=== PATIENT | male | born 1975 | race African-American/Black ===

== ENCOUNTER 2021-01-29 19:42 | Inpatient (IN) | payer MEDICAID, OTHER ==
--- NOTE | 2021-01-29 20:34 | ERPHSYRPT ---
- History of Present Illness Time Seen by Provider: 01/29/21 20:23 Source: patient Exam Limitations: no limitations Patient Subjective Stated Complaint: Patient states " I started coughing last 01/25/21 and I went to PCP on Saturday01/27/21 and was started on ATB which I have been taking but it hasn't got any better and know my rib cage is killing me and when I cough the pain is terrible". Triage Nursing Assessment: Patient arrived to ED and ambulated to room without difficulty. Gait steady. Patient A/O times 4. Patient able to follow directions without difficulty. Lungs clear/diminished A/P throughout. Patient denies SOB/chest pain. Respiratory regular and easy, non-labored. Cap refill < 3 seconds. No S/S of respiratory distress noted. 02 sat upon arrival 95% on room air. + BS times 4 quads. ABD soft, round, non-distended. Patient denies pain or discomfort upon palpitation to ABD. Upon palpitation of rib cage patient stated very tender and sore. Patient states most of pain comes when he gets into a coughing spell. + radial and pedal bilateral. No dependent edema noted. Oral mucosa clean, moist. Skin turgor < 3 seconds. No S/S of dehydration noted. Patient states he does ache all over and he has slept all day. Patient stated appetite has been poor last 2 days but fluid intake has been normal. Bilateral hand egg processor strong and equal. Bilateral pupils brisk and reactive to light. Moves all extremities without difficulty. Patient denies any falls or trauma that could contribute to rib pain. Patient noted to have dry, hacking cough with no sputum production. Patient states he hasn't been able to cough anything up. Patient states he has been taking his oral ATB 3X day since Saturday01/27/21. Physician History: 45 years old male with history of diabetes mellitus, hypertension presented in the ER with chief complaint of cough for the last 4 days. Patient report dry cough more at nighttime with gradual worsening. Because of repeated coughing is having bilateral lower rib cage pain with coughing. Denies any palpitations or shortness of breath. No fever or chills reported. Denies any sick contact. 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 Patient was seen at primary care and was given Keflex but does not seem much help. Timing/Duration: day(s) (4), gradual onset, worse Cough Quality/Degree: dry cough Possible Cause: no prior episodes Modifying Factors: Worsens With: coughing Associated Symptoms: chest pain/soreness, cough, No fever, No headache, No lightheadedness, No muscle aches, No nasal congestion, No shortness of breath Allergies/Adverse Reactions: No Known Drug Allergies Allergy (Verified 01/29/21 19:50) Home Medications: Pravastatin Sodium 10 mg PO DAILY 08/10/16 [History] Hx Tetanus, Diphtheria Vaccination/Date Given: No Hx Influenza Vaccination/Date Given: No Hx Pneumococcal Vaccination/Date Given: No Immunizations Up to Date: Yes Travel Risk - International Travel Have you traveled outside of the country in past 3 weeks: No - Coronavirus Screening Are you exhibiting any of the following symptoms?: Yes Symptoms: Cough: New Onset, Headaches/Body Aches/Fatigue Close contact with a COVID-19 positive Pt in past 14-21 Days: No - Review of Systems Constitutional: No Symptoms Eyes: No Symptoms Ears, Nose, & Throat: No Symptoms Respiratory: Cough Cardiac: No Palpitations, No Orthopnea Abdominal/Gastrointestinal: No Symptoms Genitourinary Symptoms: No Symptoms Musculoskeletal: No Symptoms Skin: No Symptoms Neurological: No Symptoms Psychological: No Symptoms Endocrine: No Symptoms Hematologic/Lymphatic: No Symptoms Immunological/Allergic: No Symptoms - Past Medical History Pertinent Past Medical History: Yes Neurological History: No Pertinent History ENT History: No Pertinent History Cardiac History: High Cholesterol, Hypertension Respiratory History: No Pertinent History Endocrine Medical History: Diabetes Type II Musculoskeletal History: No Pertinent History GI Medical History: No Pertinent History History: No Pertinent History Psycho-Social History: No Pertinent History Male Reproductive Disorders: No Pertinent History - Past Surgical History Past Surgical History: No Neuro Surgical History: No Pertinent History Cardiac: No Pertinent History Respiratory: No Pertinent History Gastrointestinal: No Pertinent History Genitourinary: No Pertinent History Musculoskeletal: No Pertinent History Male Surgical History: No Pertinent History - Social History Smoking Status: Never smoker Exposure to second hand smoke: Yes Drug Use: none Patient Lives Alone: Yes - Nursing Vital Signs Nursing Vital Signs: Initial Vital Signs Temperature 98.8 F 01/29/21 19:58 Pulse Rate 79 01/29/21 19:58 Respiratory Rate 18 01/29/21 19:58 Blood Pressure 156/98 01/29/21 19:58 O2 Sat by Pulse Oximetry 95 01/29/21 19:58 Pain Scale Pain Intensity 4 - Physical Exam General Appearance: no apparent distress Eye Exam: PERRL/EOMI, eyes nml inspection Ears, Nose, Throat Exam: TMs normal, moist mucous membranes, pharyngeal erythema Neck Exam: normal inspection, non-tender, supple, full range of motion Respiratory Exam: normal breath sounds, lungs clear, No chest tenderness Cardiovascular Exam: regular rate/rhythm, normal heart sounds Gastrointestinal/Abdomen Exam: soft, No tenderness Back Exam: normal inspection, normal range of motion Extremity Exam: normal inspection, normal range of motion Neurologic Exam: alert, oriented x 3, cooperative Skin Exam: normal color SpO2 Interpretation: normal SpO2: 95 O2 Delivery: Room Air - Course EKG Interpreted by Me: RATE (68), Sinus Rhythm, Left [place] Deviation, LAFB, NORMAL INTERVALS, Other (LVH, T wave inversion and anterolateral leads) Ordered Tests: Medication Summary Discontinued Medications Generic Name Dose Route Start Last Admin Trade Name Freq PRN Reason Stop Dose Admin Acetaminophen 650 mg 01/30/21 00:23 Tylenol 325 Mg PO 03/01/21 00:22 Q4H PRN PRN PAIN AND/OR FEVER Albuterol Sulfate 4 puff 01/30/21 07:00 Ventolin Common Canister IH 03/01/21 06:59 TIDRT JERMAN Albuterol Sulfate 4 puff 01/30/21 01:21 Ventolin Common Canister IH 03/01/21 01:20 Q4H PRN PRN SHORTNESS OF BREATH/WHEEZING Albuterol/Ipratropium 3 ml 01/29/21 20:56 01/29/21 21:07 Duoneb 0.5-3 Mg/3 Ml Neb IH 01/29/21 20:57 3 ml STAT ONE Administration Albuterol/Ipratropium Confirm 01/29/21 21:06 Duoneb 0.5-3 Mg/3 Ml Neb Administered 01/29/21 21:07 Dose 3 ml IH .STK-MED ONE Atenolol 50 mg 01/30/21 10:00 01/31/21 06:40 Tenormin 50 Mg PO 03/01/21 09:59 50 mg BID JERMAN Administration Dexamethasone Sodium Phosphate 4 mg 01/30/21 10:00 01/31/21 09:14 Decadron 4 Mg Inj IV 03/01/21 09:59 4 mg BID JERMAN Administration Enoxaparin Sodium Confirm 01/29/21 22:58 Enoxaparin Sodium Administered 01/29/21 22:59 Dose 80 mg SQ .STK-MED ONE Enoxaparin Sodium 40 mg 01/30/21 22:00 01/30/21 22:15 Enoxaparin Sodium SQ 03/01/21 21:59 40 mg Q24H22 JERMAN Administration Famotidine 20 mg 01/30/21 10:00 01/31/21 09:14 Pepcid 20 Mg Vial IV 03/01/21 09:59 20 mg Q12HT JERMAN Administration Fluoxetine HCl 20 mg 01/30/21 10:00 01/31/21 09:14 Prozac 20 Mg PO 03/01/21 09:59 20 mg DAILY JERMAN Administration Hydrochlorothiazide 25 mg 01/31/21 10:00 01/31/21 08:16 Hydrodiuril 25 Mg PO 03/02/21 09:59 25 mg DAILY JERMAN Administration Ceftriaxone Sodium/Dextrose 1 g in 50 mls @ 100 mls/hr 01/29/21 20:56 01/29/21 22:55 Rocephin 1 Gm-D5w 50 Ml Bag IV 01/29/21 21:25 Infused STAT STA Infusion Azithromycin 500 mg in 250 mls @ 250 mls/hr 01/29/21 20:56 01/29/21 22:55 Zithromax 500 Mg/ 250 Ml Nacl Premix IV 01/29/21 21:55 Infused STAT STA Infusion Azithromycin Confirm 01/29/21 21:01 Zithromax 500 Mg/ 250 Ml Nacl Premix Administered 01/29/21 21:02 Dose 500 mg in 250 mls @ ud IV .STK-MED ONE Ceftriaxone Sodium/Dextrose Confirm 01/29/21 21:01 Rocephin 1 Gm-D5w 50 Ml Bag Administered 01/29/21 21:02 Dose 1 g in 50 mls @ ud IV .STK-MED ONE Remdesivir 200 mg/ Sodium 250 mls @ 125 mls/hr 01/29/21 22:58 01/29/21 23:17 Chloride IV 01/30/21 00:57 125 mls/hr ONCE ONE Administration Sodium Chloride Confirm 01/29/21 23:13 Sodium Chloride 0.9% 250 Ml Administered 01/29/21 23:14 Dose 250 mls @ ud IV .STK-MED ONE Ceftriaxone Sodium/Dextrose 1 g in 50 mls @ 100 mls/hr 01/30/21 22:00 Rocephin 1 Gm-D5w 50 Ml Bag IV 03/01/21 21:59 Q24H22 JERMAN Azithromycin 500 mg in 250 mls @ 250 mls/hr 01/30/21 22:00 Zithromax 500 Mg/ 250 Ml Nacl Premix IV 03/01/21 21:59 Q24H22 JERMAN Remdesivir 100 mg/ Sodium 100 mls @ 100 mls/hr 01/30/21 23:01 01/30/21 22:16 Chloride IV 02/03/21 00:00 100 mls/hr Q24H JERMAN Administration Insulin Glargine 30 unit 01/30/21 10:00 01/31/21 09:15 Lantus Insulin SQ 03/01/21 09:59 30 unit QAM JERMAN Administration Insulin Glargine 70 unit 01/30/21 22:00 01/30/21 22:15 Lantus Insulin SQ 03/01/21 21:59 70 unit QPM JERMAN Administration Insulin Human Lispro 0 unit 01/30/21 00:23 01/31/21 11:47 Humalog SQ 03/01/21 00:22 9 unit UD PRN Administration HYPERGLYCEMIA Lisinopril 10 mg 01/30/21 10:00 Zestril 10 Mg PO 03/01/21 09:59 BID JERMAN Lisinopril 40 mg 01/30/21 10:00 01/31/21 06:40 Zestril 20 Mg PO 03/01/21 09:59 40 mg DAILY JERMAN Administration Lorazepam 1 mg 01/30/21 09:08 Ativan 1 Mg PO 03/01/21 09:07 Q6H PRN PRN Methylprednisolone Sodium Succinate 125 mg 01/29/21 20:56 01/29/21 21:15 Solu-Medrol 125 Mg IV 01/29/21 20:57 125 mg STAT ONE Administration Methylprednisolone Sodium Succinate Confirm 01/29/21 21:01 Solu-Medrol 125 Mg Administered 01/29/21 21:02 Dose 125 mg .ROUTE .STK-MED ONE Miscellaneous Information 0 each 01/30/21 07:45 Medication Intervention 03/01/21 07:44 .RN TO CHECK WITH PATIENT [facility] Ondansetron HCl 4 mg 01/30/21 00:23 Zofran 4 Mg/2 Ml Vial IV 03/01/21 00:22 Q6H PRN PRN NAUSEA/VOMITING Potassium Chloride 40 meq 01/29/21 23:04 01/29/21 23:16 Klor Con 10 Meq PO 01/29/21 23:05 40 meq STAT ONE Administration Potassium Chloride Confirm 01/29/21 23:07 Klor Con 10 Meq Administered 01/29/21 23:08 Dose 40 meq PO .STK-MED ONE Potassium Chloride 10 meq 01/30/21 10:00 01/31/21 09:15 Klor Con 10 Meq PO 03/01/21 09:59 10 meq DAILY JERMAN Administration Prednisone 60 mg 01/29/21 20:45 Deltasone 10 Mg PO 02/28/21 20:44 1XONLY JERMAN Prednisone Confirm 01/29/21 20:41 Deltasone 20 Mg Administered 01/29/21 20:42 Dose 60 mg .ROUTE .STK-MED ONE Pregabalin 75 mg 01/30/21 10:00 01/31/21 09:15 Lyrica 75 Mg Cap PO 03/01/21 09:59 75 mg DAILY JERMAN Administration Remdesivir Confirm 01/29/21 23:13 Remdesivir Administered 01/29/21 23:14 Dose 200 mg IV .STK-MED ONE Simvastatin 20 mg 01/30/21 22:00 01/30/21 22:16 Zocor 20mg PO 03/01/21 21:59 20 mg HS JERMAN Administration Lab/Rad Data: Laboratory Result Diagrams 01/29/21 21:15 01/29/21 21:15 Laboratory Results 01/29/21 01/29/21 01/29/21 Range/Units 21:58 21:15 21:15 WBC (4.0-10.5) K/mm3 RBC (4.1-5.6) M/mm3 Hgb (12.5-18.0) gm/dl Hct (42-50) % MCV (78-100) fl MCH (26-32) pg MCHC (32-36) g/dl RDW (11.5-14.0) % Plt Count (150-450) K/mm3 MPV (7.5-11.0) fl Segmented Neutrophils (36.-66.) % Lymphocytes (Manual) (24-44) % Monocytes (Manual) (0.0-12.0) % Eosinophils (Manual) (0.00-3.0) % Atypical Lymphocytes % Platelet Estimate (NORMAL) RBC Morphology D-Dimer 479 (215-500) ng/mL Sodium (137-145) mmol/L Potassium (3.5-5.1) mmol/L Chloride (98-107) mmol/L Carbon Dioxide (22-30) mmol/L Anion Gap (5-15) MEQ/L BUN (9-20) mg/dL Creatinine (0.66-1.25) mg/dL Estimated GFR ML/MIN Glucose (74-106) mg/dL POC Glucometer (74 to 106) mg/dL Lactic Acid (0.4-2.0) Calcium (8.4-10.2) mg/dL Magnesium (1.6-2.3) mg/dL Total Bilirubin (0.2-1.3) mg/dL AST (17-59) U/L ALT (0-50) U/L Alkaline Phosphatase (38-126) U/L Troponin I < 0.012 (0.000-0.034) ng/mL NT-Pro-B Natriuret Pep (0-450) pg/mL Serum Total Protein (6.3-8.2) g/dL Albumin (3.5-5.0) g/dL Urine Color (YELLOW) Urine Appearance (CLEAR) Urine pH (5-6) Ur Specific [place] (1.005-1.025) Urine Protein (Negative) Urine Ketones (NEGATIVE) Urine Blood (0-5) [place]/ul Urine Nitrite (NEGATIVE) Urine Bilirubin (NEGATIVE) Urine Urobilinogen (0-1) mg/dL Ur Leukocyte Esterase (NEGATIVE) Urine WBC (Auto) (0-5) /HPF Urine RBC (Auto) (0-2) /HPF U Epithel Cells (Auto) (FEW) /HPF Urine Bacteria (Auto) (NEGATIVE) /HPF Urine Mucus (Auto) (NEGATIVE) /HPF Urine Culture Reflexed (NO) Urine Glucose (NEGATIVE) mg/dL Influenza Type A Ag NEGATIVE (NEGATIVE) Influenza Type B Ag NEGATIVE (NEGATIVE) RSV (PCR) NEGATIVE (Negative) SARS-CoV-2 (PCR) POSITIVE A (NEGATIVE) 01/29/21 01/29/21 01/29/21 Range/Units 21:15 21:15 21:08 WBC 5.3 (4.0-10.5) K/mm3 RBC 4.89 (4.1-5.6) M/mm3 Hgb 13.9 (12.5-18.0) gm/dl Hct 42.2 (42-50) % MCV 86.3 (78-100) fl MCH 28.4 (26-32) pg MCHC 32.9 (32-36) g/dl RDW 12.5 (11.5-14.0) % Plt Count 260 (150-450) K/mm3 MPV 9.2 (7.5-11.0) fl Segmented Neutrophils 67 H (36.-66.) % Lymphocytes (Manual) 26 (24-44) % Monocytes (Manual) 1 (0.0-12.0) % Eosinophils (Manual) 1 (0.00-3.0) % Atypical Lymphocytes 5 % Platelet Estimate NORMAL (NORMAL) RBC Morphology NORMAL D-Dimer (215-500) ng/mL Sodium 138 (137-145) mmol/L Potassium 3.1 L (3.5-5.1) mmol/L Chloride 102 (98-107) mmol/L Carbon Dioxide 29 (22-30) mmol/L Anion Gap 10.0 (5-15) MEQ/L BUN 7 L (9-20) mg/dL Creatinine 0.78 (0.66-1.25) mg/dL Estimated GFR > 60.0 ML/MIN Glucose 208 H (74-106) mg/dL POC Glucometer (74 to 106) mg/dL Lactic Acid 0.7 (0.4-2.0) Calcium 8.5 (8.4-10.2) mg/dL Magnesium 2.0 (1.6-2.3) mg/dL Total Bilirubin 0.50 (0.2-1.3) mg/dL AST 24 (17-59) U/L ALT 27 (0-50) U/L Alkaline Phosphatase 94 (38-126) U/L Troponin I (0.000-0.034) ng/mL NT-Pro-B Natriuret Pep 32.4 (0-450) pg/mL Serum Total Protein 7.2 (6.3-8.2) g/dL Albumin 3.5 (3.5-5.0) g/dL Urine Color (YELLOW) Urine Appearance (CLEAR) Urine pH (5-6) Ur Specific [place] (1.005-1.025) Urine Protein (Negative) Urine Ketones (NEGATIVE) Urine Blood (0-5) [place]/ul Urine Nitrite (NEGATIVE) Urine Bilirubin (NEGATIVE) Urine Urobilinogen (0-1) mg/dL Ur Leukocyte Esterase (NEGATIVE) Urine WBC (Auto) (0-5) /HPF Urine RBC (Auto) (0-2) /HPF U Epithel Cells (Auto) (FEW) /HPF Urine Bacteria (Auto) (NEGATIVE) /HPF Urine Mucus (Auto) (NEGATIVE) /HPF Urine Culture Reflexed (NO) Urine Glucose (NEGATIVE) mg/dL Influenza Type A Ag (NEGATIVE) Influenza Type B Ag (NEGATIVE) RSV (PCR) (Negative) SARS-CoV-2 (PCR) (NEGATIVE) 01/29/21 01/29/21 Range/Units 20:56 20:16 WBC (4.0-10.5) K/mm3 RBC (4.1-5.6) M/mm3 Hgb (12.5-18.0) gm/dl Hct (42-50) % MCV (78-100) fl MCH (26-32) pg MCHC (32-36) g/dl RDW (11.5-14.0) % Plt Count (150-450) K/mm3 MPV (7.5-11.0) fl Segmented Neutrophils (36.-66.) % Lymphocytes (Manual) (24-44) % Monocytes (Manual) (0.0-12.0) % Eosinophils (Manual) (0.00-3.0) % Atypical Lymphocytes % Platelet Estimate (NORMAL) RBC Morphology D-Dimer (215-500) ng/mL Sodium (137-145) mmol/L Potassium (3.5-5.1) mmol/L Chloride (98-107) mmol/L Carbon Dioxide (22-30) mmol/L Anion Gap (5-15) MEQ/L BUN (9-20) mg/dL Creatinine (0.66-1.25) mg/dL Estimated GFR ML/MIN Glucose (74-106) mg/dL POC Glucometer 207 H (74 to 106) mg/dL Lactic Acid (0.4-2.0) Calcium (8.4-10.2) mg/dL Magnesium (1.6-2.3) mg/dL Total Bilirubin (0.2-1.3) mg/dL AST (17-59) U/L ALT (0-50) U/L Alkaline Phosphatase (38-126) U/L Troponin I (0.000-0.034) ng/mL NT-Pro-B Natriuret Pep (0-450) pg/mL Serum Total Protein (6.3-8.2) g/dL Albumin (3.5-5.0) g/dL Urine Color YELLOW (YELLOW) Urine Appearance CLEAR (CLEAR) Urine pH 5.0 (5-6) Ur Specific [place] 1.021 (1.005-1.025) Urine Protein 30 (Negative) Urine Ketones SMALL (NEGATIVE) Urine Blood NEGATIVE (0-5) [place]/ul Urine Nitrite NEGATIVE (NEGATIVE) Urine Bilirubin NEGATIVE (NEGATIVE) Urine Urobilinogen 4 (0-1) mg/dL Ur Leukocyte Esterase NEGATIVE (NEGATIVE) Urine WBC (Auto) 0-2 (0-5) /HPF Urine RBC (Auto) NONE (0-2) /HPF U Epithel Cells (Auto) NONE (FEW) /HPF Urine Bacteria (Auto) NONE SEEN (NEGATIVE) /HPF Urine Mucus (Auto) SLIGHT (NEGATIVE) /HPF Urine Culture Reflexed NO (NO) Urine Glucose >=500 (NEGATIVE) mg/dL Influenza Type A Ag (NEGATIVE) Influenza Type B Ag (NEGATIVE) RSV (PCR) (Negative) SARS-CoV-2 (PCR) (NEGATIVE) - Progress Progress: re-examined Air Movement: fair Progress Note: 01/29/21 23:02 45 years old is evaluated for worsening cough. Patient has decreased air movements, given Solu-Medrol and breathing treatment, chest x-ray showed bilateral pneumonia. EKG showed normal sinus rhythm with LVH, inferolateral T wave inversions. Has negative troponins. Mildly low potassium and is given replacement. He started on Rocephin and Zithromax. COVID-19 testing is positive. Started on remdesivir and given prophylactic dose of Lovenox as patient has negative D-dimers. Discussed with Dr. Edge, agreed with above plan and patient is accepted for admission. Plan discussed with patient who und erstand and agrees with it. Blood Culture(s) Obtained: Yes Antibiotics given: Yes Discussed with Dr.: Other (Dr. Edge) Will see patient in: hospital (full admit) Counseled pt/family regarding: lab results, diagnosis, rad results - Departure Departure Disposition: In-patient Admission Clinical Impression: Pneumonia due to COVID-19 virus, Hypokalemia Condition: Stable Critical Care Time: Yes Critical Care Time(excluding separately billable procedures): Critical 30-74 mins
[2021-01-29] MEDS ORDERED: DELTASONE 20 MG ONE (20:41)
[2021-01-29] MEDS ORDERED: DELTASONE 10 MG PO SCH (20:45)
[2021-01-29] MEDS ORDERED: solu-MEDROL 125 MG IV ONE (20:56)
[2021-01-29] MEDS ORDERED: DUONEB 0.5-3 MG/3 ml Neb IH ONE ×2 (20:56→21:06)
[2021-01-29] MEDS ORDERED: Zithromax 500 MG/ 250 ML NaCl Premix 500 MG/250 ML IVPB IV STA (20:56)
[2021-01-29] MEDS ORDERED: ROCEPHIN 1 Gm-D5w 50 ml Bag** 1 G/50 ML IVPB IV STA (20:56)
[2021-01-29] MEDS ORDERED: Zithromax 500 MG/ 250 ML NaCl Premix 500 MG/250 ML IVPB IV ONE (21:01)
[2021-01-29] MEDS ORDERED: solu-MEDROL 125 MG ONE (21:01)
[2021-01-29] MEDS ORDERED: ROCEPHIN 1 Gm-D5w 50 ml Bag** 1 G/50 ML IVPB IV ONE (21:01)
[2021-01-29 21:18] LABS: Hematocrit 42.2 % (42-50); Hemoglobin 13.9 gm/dl (12.5-18.0); Mean Cell Volume 86.3 fl (78-100); Mean Corpuscular Hemoglobin 28.4 pg (26-32); Mean Corpuscular Hgb Concent. 32.9 g/dl (32-36); Mean Platelet Volume 9.2 fl (7.5-11.0); Platelet Count 260 K/mm3 (150-450); Red Blood Count 4.89 M/mm3 (4.1-5.6); Red Cell Distribution Width 12.5 % (11.5-14.0); White Blood Count 5.3 K/mm3 (4.0-10.5)
[2021-01-29 21:38] LABS: ALBUMIN 3.5 g/dL (3.5-5.0); ALKALINE PHOSPHATASE 94 U/L (38-126); BLOOD UREA NITROGEN 7 mg/dL (9-20); CHLORIDE 102 mmol/L (98-107); Calcium 8.5 mg/dL (8.4-10.2); Carbon Dioxide 29 mmol/L (22-30); Creatinine 1 0.78 mg/dL (0.66-1.25); EST GLOMERULAR FILTRATION RATE > 60.0 ML/MIN; Glucose 208 mg/dL (74-106); NT PRO BNP 32.4 pg/mL (0-450); Potassium 3.1 mmol/L (3.5-5.1); SGOT/AST 24 U/L (17-59); SGPT/ALT 27 U/L (0-50); SODIUM 138 mmol/L (137-145); Total Protein 7.2 g/dL (6.3-8.2)
[2021-01-29 22:05] LABS: ATYPICAL LYMPHS 5 %; Eosinophil 1 % (0.00-3.0); Lymphocytes 26 % (24-44); Monocyte 1 % (0.0-12.0); Neutrophils 67 % (36.-66.); Platelet Estimate NORMAL (NORMAL); Total Cells Counted 100
[2021-01-29 22:37] LABS: INFLUENZA A NEGATIVE (NEGATIVE); INFLUENZA B NEGATIVE (NEGATIVE); RESPIRATORY SYNCTIAL VIRUS NEGATIVE (Negative)
[2021-01-29] MEDS ORDERED: REMDESIVIR 200 MG in Sodium Chloride 0.9% 250 ML 250 ML IV ONE (22:58)
[2021-01-29] MEDS ORDERED: ENOXAPARIN SODIUM SQ ONE (22:58)
[2021-01-29] MEDS ORDERED: Klor Con 10 MEQ PO ONE ×2 (23:04→23:07)
[2021-01-29] MEDS ORDERED: REMDESIVIR IV ONE (23:13)
[2021-01-29] MEDS ORDERED: Sodium Chloride 0.9% 250 ML 250 ML IV ONE (23:13)
[2021-01-30] MEDS ORDERED: TYLENOL 325 MG PO PRN (00:23)
[2021-01-30] MEDS ORDERED: Zofran 4 MG/2 ML VIAL IV PRN (00:23)
[2021-01-30] MEDS ORDERED: VENTOLIN COMMON CANISTER IH PRN (01:21)
[2021-01-30 01:26] LABS: Appearance CLEAR (CLEAR); Bilirubin NEGATIVE (NEGATIVE); Blood NEGATIVE Ery/ul (0-5); Glucose >=500 mg/dL (NEGATIVE); Ketones SMALL (NEGATIVE); Leukocyte Esterase NEGATIVE (NEGATIVE); Mucus SLIGHT /HPF (NEGATIVE); Nitrite NEGATIVE (NEGATIVE); Protein,Urine Dip 30 (Negative); Specific Gravity 1.021 (1.005-1.025); Urobilinogen 4 mg/dL (0-1); WBC 0-2 /HPF (0-5)
[2021-01-30 03:49] LABS: Bacteria NONE SEEN /HPF (NEGATIVE)
[2021-01-30 04:42] LABS: ALBUMIN 3.5 g/dL (3.5-5.0); ALKALINE PHOSPHATASE 111 U/L (38-126); BLOOD UREA NITROGEN 9 mg/dL (9-20); CHLORIDE 103 mmol/L (98-107); Calcium 8.6 mg/dL (8.4-10.2); Carbon Dioxide 25 mmol/L (22-30); Creatinine 1 0.71 mg/dL (0.66-1.25); EST GLOMERULAR FILTRATION RATE > 60.0 ML/MIN; Glucose 402 mg/dL (74-106); Potassium 4.2 mmol/L (3.5-5.1); SGOT/AST 24 U/L (17-59); SGPT/ALT 28 U/L (0-50); SODIUM 138 mmol/L (137-145)
[2021-01-30 04:53] LABS: Hematocrit 43.8 % (42-50); Hemoglobin 14.3 gm/dl (12.5-18.0); Mean Cell Volume 86.6 fl (78-100); Mean Corpuscular Hemoglobin 28.3 pg (26-32); Mean Corpuscular Hgb Concent. 32.6 g/dl (32-36); Mean Platelet Volume 9.9 fl (7.5-11.0); Platelet Count 288 K/mm3 (150-450); Red Blood Count 5.06 M/mm3 (4.1-5.6); Red Cell Distribution Width 12.7 % (11.5-14.0); White Blood Count 4.9 K/mm3 (4.0-10.5)
[2021-01-30] MEDS ORDERED: VENTOLIN COMMON CANISTER IH SCH (07:00)
[2021-01-30] MEDS ORDERED: MEDICATION INTERVENTION MC SCH (07:45)
[2021-01-30] MEDS: HUMALOG SQ PRN ×4 (08:04→22:16)
--- NOTE | 2021-01-30 08:40 | XRAY ---
Indication: Cough, fatigue, and body ache. Comparison: None PA/lateral chest underinflated with diffuse bilateral patchy airspace disease. No consolidation/large effusion. Remaining heart and bony thorax unremarkable.
--- NOTE | 2021-01-30 09:06 | HP ---
CHIEF COMPLAINT: Lower chest pain, frequent cough for three days. HISTORY OF PRESENT ILLNESS: The patient came to the emergency room Saturday night and tested positive for COVID. Chest x-ray showed some infiltrates lower bases typical for COVID. He was afebrile. Blood pressure was somewhat elevated. He just aches, decreased appetite, just feels bad. He does not know where he has been exposed to it. He has been to [place] and the store I guess but no one else that he knows has any illnesses. MEDICATIONS: NovoLog insulin on sliding scale, tests before meals. Levemir 30 units b.i.d. has not been taking secondary to finances. Pravastatin 10 q.d. Keflex started by primary care doctor before he got the COVID test on 01/29/2021. Lyrica 75 q.d. ALLERGIES: NKDA. PAST MEDICAL HISTORY: Hypertension poorly controlled. Diabetes mellitus for going on 19 years insulin dependent. Hyperlipidemia. PAST SURGICAL HISTORY: None. TRAVEL: Essentially none. REVIEW OF SYSTEMS: CONSTITUTIONAL: Achy, tired, fatigued. HEENT: Eyes, throat and nose - None. RESPIRATORY: Cough, lower chest pain. ABDOMEN: May be a little nausea. EXTREMITIES: Fatigue and that is about it. SOCIAL HISTORY: He has got a 5 and 7 year-old. He has been working at [employer]. He is on Medicaid insurance. He lives in [place]. He does not smoke, does not drink and does not use any illicit drugs. He lives alone however he told me he lives with his and two children. PHYSICAL EXAMINATION: The patient is a pretty sturdy, large black male with a dry cough otherwise looks healthy. Temperature 99F, pulse 80, respiratory rate 20. O2 saturation dropped to 90% last night. Pain intensity was 6 on admission. GENERAL: No severe distress. HEENT: Pupils equal and reactive to light. NECK: Supple without adenopathy. CHEST: Clear. CVS: No murmurs or gallops. ABDOMEN: Soft. No masses or organomegaly. EXTREMITIES: Good pulses. No cyanosis. LAB DATA AND TESTS: Chest x-ray some bilateral airspace disease. EKG showed left anterior fascicular block (LAFH), left axis deviation, left ventricular hypertrophy, T-wave inversion in anterior leads. BNP was normal. D-dimer was normal. IMPRESSION: The patient has COVID and complicating factors of moderate obesity, black race, hypertension, hyperlipidemia, diabetes mellitus insulin dependent. PLAN: The patient will be started on Remdesivir, Decadron. His insulin will be adjusted. His blood pressure medicines will be increased. Will add Prozac. There is a study from [place] this week showing it decreases the length of COVID this may be premature but there are very few side effects to Prozac. He is also on Lovenox prophylactic. PROGNOSIS: [place] to be fairly good.
[2021-01-30] MEDS ORDERED: Ativan 1 MG PO PRN (09:08)
[2021-01-30 09:23] LABS: ANION GAP 12.6 MEQ/L (5-15); Potassium 4.1 mmol/L (3.5-5.1); Risk Ratio 8.1
[2021-01-30] MEDS ORDERED: Zestril 10 MG PO SCH (10:00)
[2021-01-30] MEDS ORDERED: FLUZONE QUAD 2020-2021 SYRINGE IM ONE (10:00)
[2021-01-30] MEDS ORDERED: NON-FORMULARY ITEM (Pravastatin Sodium [Pravastatin Sodium] 10 MG) PO SCH (10:00)
[2021-01-30] MEDS ORDERED: INSULIN DETEMIR 30 UNIT SQ SCH (10:00)
[2021-01-30] MEDS: Klor Con 10 MEQ PO SCH (10:56)
[2021-01-30] MEDS: Prozac 20 MG PO SCH (10:56)
[2021-01-30] MEDS: TENORMIN 50 MG PO SCH ×2 (10:56→23:29)
[2021-01-30] MEDS: Zestril 20 MG PO SCH (10:56)
[2021-01-30] MEDS: Decadron 4 MG INJ IV SCH ×2 (10:56→22:14)
[2021-01-30] MEDS: Lantus Insulin SQ SCH (10:57)
[2021-01-30] MEDS: LYRICA 75 MG CAP PO SCH (10:57)
[2021-01-30] MEDS: Pepcid 20 MG VIAL IV SCH ×2 (10:57→22:15)
[2021-01-30] MEDS ORDERED: ZOCOR 20MG PO SCH (22:00)
[2021-01-30] MEDS ORDERED: ENOXAPARIN SODIUM SQ SCH (22:00)
[2021-01-30] MEDS ORDERED: ROCEPHIN 1 Gm-D5w 50 ml Bag** 1 G/50 ML IVPB IV SCH (22:00)
[2021-01-30] MEDS ORDERED: Zithromax 500 MG/ 250 ML NaCl Premix 500 MG/250 ML IVPB IV SCH (22:00)
[2021-01-30] MEDS ORDERED: Lantus Insulin SQ SCH (22:00)
[2021-01-30] MEDS ORDERED: REMDESIVIR 100 MG in Sodium Chloride 0.9% 100 ML IVPB 100 ML IV SCH (23:01)
[2021-01-31] MEDS: Zestril 20 MG PO SCH (06:40)
[2021-01-31] MEDS: TENORMIN 50 MG PO SCH (06:40)
[2021-01-31] MEDS: HUMALOG SQ PRN ×2 (08:16→11:47)
[2021-01-31] MEDS: Prozac 20 MG PO SCH (09:14)
[2021-01-31] MEDS: Pepcid 20 MG VIAL IV SCH (09:14)
[2021-01-31] MEDS: Decadron 4 MG INJ IV SCH (09:14)
[2021-01-31] MEDS: Klor Con 10 MEQ PO SCH (09:15)
[2021-01-31] MEDS: LYRICA 75 MG CAP PO SCH (09:15)
[2021-01-31] MEDS: Lantus Insulin SQ SCH (09:15)
[2021-01-31] MEDS ORDERED: hydroDIURIL 25 MG PO SCH (10:00)
[2021-01-31 11:11] VITALS: BP 151/94; PULSE 63
[2021-02-02 18:10] VITALS: O2SAT 95
== END 2021-01-31 11:55 | disposition home or self-care (01) | DRG 179 ==
LOC: ED 19:42 → MED SURG 01-30 00:07
PROVIDERS: ADMIT Family Medicine; ATTEND Family Medicine
DX: U07.1 COVID-19 (principal); R07.9 Chest pain, unspecified; R05 Cough; E87.6 Hypokalemia; I10 Essential (primary) hypertension; E11.9 Type 2 diabetes mellitus without complications; E78.5 Hyperlipidemia, unspecified; R53.83 Other fatigue; R11.0 Nausea; Z79.899 Other long term (current) drug therapy
CPT/HCPCS: 0241U; 36000; 36415; 71046; 80051; 80053; 80061; 81001; 82947; 83036; 83605; 83721; 83735; 83880; 84484; 85025; 85027; 85379; 87040; 93005; 93041; 94640; 94660; 94762; 96360; 96374; 99285; 99291; J0456; J0696; J1100; J1650; J1817; J2930; A9270-GY